=== PATIENT | male | born 1985 | race Caucasian/White ===

== ENCOUNTER 2020-07-28 19:10 | Emergency (ER) | payer MEDICAID ==
[~2020-07-28] VITALS: Ht 167.6 cm; Wt 68.9 kg
[2020-07-28 19:29] VITALS: Ht 167.6 cm; Wt 68.9 kg
[2020-07-29 06:24] VITALS: BP 116/79
== END 2020-07-29 06:24 | disposition home or self-care (01) ==
LOC: ED 19:10
DX: F32.9 Major depressive disorder, single episode, unspecified (principal); F19.10 Other psychoactive substance abuse, uncomplicated; Z59.0 Homelessness